=== PATIENT | male | born 1995 | race Two or more races ===

== ENCOUNTER 2019-09-03 06:15 | Emergency (ER) | payer SELFPAY ==
[~2019-09-03] VITALS: Ht 170.2 cm; Wt 68.0 kg
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
--- NOTE | 2019-09-03 06:30 | NUR ---
BROUGHT TO CT
--- NOTE | 2019-09-03 06:40 | NUR ---
PT RETURNED FROM CT
--- NOTE | 2019-09-03 06:41 | NUR ---
PER MD, SALINE LOCK CANCELLED. TAILINGS MAN AT BEDSIDE FOR BLOOD DRAW
--- NOTE | 2019-09-03 06:46 | NUR ---
ELECT[employer]ICAL SYSTEMS ENGINEER AT BEDSIDE FOR BLOOD DRAW.
[2019-09-03 06:59] LABS: BASOPHILS % (AUTO) 0.5 % (0.0-2.0); EOSINOPHILS % (AUTO) 0.3 % (0.0-6.0); HEMATOCRIT 42 % (39-51); HEMOGLOBIN 14.1 g/dL (13.5-17.5); LYMPHOCYTES % (AUTO) 18.7 % (20.0-44.0); MEAN CORPUSCULAR HGB CONC 33 g/dl (31.0-36.0); MEAN CORPUSCULAR VOLUME 93 fL (80-96); MONOCYTES # (AUTO) 0.4 /CMM (0.1-1.30); MONOCYTES % (AUTO) 7.6 % (2.0-12.0); NEUTROPHILS # (AUTO) 3.8 /CMM (1.8-8.9); NEUTROPHILS % (AUTO) 72.9 % (43.0-81.0); PLATELET COUNT (AUTO) 206 /CMM (150-450); RED BLOOD CELL COUNT(AUTO) 4.54 MIL/uL (4.5-6.0); WHITE BLOOD COUNT (AUTO) 5.2 K/uL (4.3-11.0)
[2019-09-03 07:03] LABS: POTASSIUM 3.5 mmol/L (3.5-5.1)
[2019-09-03 07:31] LABS: ALBUMIN 4.3 g/dL (3.4-5.0); BILIRUBIN,DIRECT 0.1 mg/dL (0.0-0.2); BILIRUBIN,TOTAL 0.2 mg/dL (0.2-1.0); CREATININE 0.7 mg/dL (0.6-1.3); SALICYLATE 4.1 mg/dL (2.8-20.0); TOTAL PROTEIN, SERUM 8.1 g/dL (6.4-8.2)
--- NOTE | 2019-09-03 07:42 | NUR ---
ASSESSED PT ON BED AWAKE AND ALERT, NOT IN RESPIRATORY DISTRESS, HOOKED TO MONITOR, V/S STABLE, KEPT RESTED AND COMFORTABLE, WILL CONTINUE TO MONITOR.
[2019-09-03 08:17] LABS: APPEARANCE,URINE Clear (CLEAR); BILIRUBIN,URINE Negative (NEGATIVE); BLOOD, URINE Negative Ery/uL (NEGATIVE); COLOR,URINE Yellow (YELLOW); KETONES,URINE Negative (NEGATIVE); LEUKOCYTE ESTERASE ,URINE Negative (NEGATIVE); NITRITE, URINE Negative (NEGATIVE); PH,URINE 5.5 (5.0-8.0); PROTEIN,URINE Negative (NEGATIVE); UGLUCOSE Negative (NEGATIVE); UROBILINOGEN,URINE 0.2 EU/dL (0.2)
--- NOTE | 2019-09-03 12:02 | NUR ---
PT IS AWAKE, AMBULATORY W/ STEADY GAIT. AAOX3. DR PHAM AT BEDSIDE FOR RE EVAL.
--- NOTE | 2019-09-03 12:40 | NUR ---
Patient given written and verbal discharge instructions. Patient verbalizes understanding of instructions. Patient is ambulatory with steady gait. Refuses offer of penitentiary placement. Patient given list of available shelters in surrounding area.
[2019-09-03 12:41] VITALS: BP 133/84
== END 2019-09-03 12:42 | disposition home or self-care (01) ==
LOC: ER 06:15
DX: F10.129 Alcohol abuse with intoxication, unspecified (principal); R41.82 Altered mental status, unspecified; Y90.8 Blood alcohol level of 240 mg/100 ml or more
CPT/HCPCS: 36415; 70450; 80048; 80076; 80305; 80307; 80329; 81001; 85025; 99285; G0480; 81000-TC

== ENCOUNTER 2020-09-15 19:40 | Emergency (ER) | payer SELFPAY ==
[~2020-09-15] VITALS: Ht 162.6 cm; Wt 68.0 kg
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
[2020-09-15] MEDS ORDERED: LIDOCAINE 0.5%-EPI 1:200,000 50 ML VIAL ONE (20:11)
[2020-09-15] MEDS ORDERED: TDAP [DIPH/PERTUSSIS/TET] 0.5 ML VIAL IM ONE (20:22)
[2020-09-15] MEDS: TDAP [DIPH/PERTUSSIS/TET] 0.5 ML VIAL IM ONE (20:22)
[2020-09-15 20:39] LABS: BASOPHILS % (AUTO) 0.8 % (0.0-2.0); EOSINOPHILS % (AUTO) 0.9 % (0.0-6.0); HEMATOCRIT 44 % (39-51); HEMOGLOBIN 14.6 g/dL (13.5-17.5); LYMPHOCYTES # (AUTO) 1.3 /CMM (0.8-4.8); LYMPHOCYTES % (AUTO) 34.4 % (20.0-44.0); MEAN CORPUSCULAR HGB CONC 34 g/dl (31.0-36.0); MEAN CORPUSCULAR VOLUME 93 fL (80-96); MONOCYTES # (AUTO) 0.4 /CMM (0.1-1.30); MONOCYTES % (AUTO) 10.3 % (2.0-12.0); NEUTROPHILS % (AUTO) 53.6 % (43.0-81.0); PLATELET COUNT (AUTO) 195 /CMM (150-450); RED BLOOD CELL COUNT(AUTO) 4.66 MIL/uL (4.5-6.0); WHITE BLOOD COUNT (AUTO) 3.8 K/uL (4.3-11.0)
[2020-09-15 20:48] LABS: CALCIUM, SERUM 8.2 mg/dL (8.5-10.1); CARBON DIOXIDE 26 mmol/L (21-32); CHLORIDE 104 mmol/L (98-107); CREATININE 0.8 mg/dL (0.6-1.3); GLUCOSE 136 mg/dL (74-106); POTASSIUM 4.1 mmol/L (3.5-5.1); SODIUM SERUM 142 mmol/L (136-145); UREA NITROGEN, BLOOD 5 mg/dL (7-18)
[2020-09-15 21:03] LABS: ACETAMINOPHEN < 2 ug/ml (10-30); ALANINE AMINOTRANSFERASE 130 U/L (12-78); ALBUMIN 4.1 g/dL (3.4-5.0); ALCOHOL, BLOOD 482 mg/dL (0-0); ALKALINE PHOSPHATASE 131 U/L (46-116); ASPARTATE AMINOTRANSFERASE 121 U/L (15-37); BILIRUBIN,DIRECT 0.1 mg/dL (0.0-0.2); BILIRUBIN,TOTAL 0.2 mg/dL (0.2-1.0); TOTAL PROTEIN, SERUM 8.2 g/dL (6.4-8.2)
--- NOTE | 2020-09-15 23:55 | NUR ---
PT AAOX4, DENIES SI/HI AT THIS TIME. MD CORONADO
--- NOTE | 2020-09-16 03:48 | NUR ---
PT REMAINS ASLEEP, VSS.
--- NOTE | 2020-09-16 05:20 | NUR ---
PT AWAKE. AMBULATORY WITH STEADY GAIT. MEDICALLY CLEARED FOR DISCHARGE AT THIS TIME.
--- NOTE | 2020-09-16 05:30 | NUR ---
Patient discharged to home in stable condition. Written and verbal after care instructions given. Patient verbalizes understanding of instruction. Pt ambulated out of ED. VSS.
[2020-09-16 06:02] VITALS: BP 126/73
== END 2020-09-16 05:40 | disposition home or self-care (01) ==
LOC: ER 19:40 → EDUNIT# 19:40 → EDBD 19:40 → ER 09-16 05:40
DX: S61.212A Laceration without foreign body of right middle finger without damage to nail, initial encounter (principal); F10.129 Alcohol abuse with intoxication, unspecified; W25.XXXA Contact with sharp glass, initial encounter; Y93.89 Activity, other specified; Y92.481 Parking lot as the place of occurrence of the external cause; Y99.8 Other external cause status; Y90.8 Blood alcohol level of 240 mg/100 ml or more
CPT/HCPCS: 12002; 73130; 80048; 80076; 80299; 80307; 80320; 85025; 90471; 90715; 99284; J3490; G0480

== ENCOUNTER 2021-10-28 21:44 | Emergency (ER) | payer MEDICAID ==
[~2021-10-28] VITALS: Ht 162.6 cm; Wt 63.5 kg
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
[2021-10-28] MEDS ORDERED: LIDOCAINE 1% INJ 50 ML MDV IJ ONE (22:30)
[2021-10-28] MEDS ORDERED: ACETAMINOPHEN ES 500 MG TABLET PO ONE (22:30)
[2021-10-29 00:15] LABS: BASOPHILS # (AUTO) 0.1 K/uL (0.0-0.2); EOSINOPHILS % (AUTO) 1.3 % (0.0-6.0); HEMATOCRIT 30 % (39-51); HEMOGLOBIN 9.5 g/dL (13.5-17.5); LYMPHOCYTES # (AUTO) 0.2 K/uL (0.8-4.8); LYMPHOCYTES % (AUTO) 7.4 % (20.0-44.0); MEAN CORPUSCULAR HGB CONC 32 g/dl (31.0-36.0); MEAN CORPUSCULAR VOLUME 76 fL (80-96); MONOCYTES # (AUTO) 0.4 K/uL (0.1-1.30); MONOCYTES % (AUTO) 13.5 % (2.0-12.0); NEUTROPHILS % (AUTO) 73.8 % (43.0-81.0); PLATELET COUNT (AUTO) 164 K/uL (150-450); RED BLOOD CELL COUNT(AUTO) 3.97 MIL/uL (4.5-6.0); WHITE BLOOD COUNT (AUTO) 2.8 K/uL (4.3-11.0)
[2021-10-29 00:30] LABS: CALCIUM, SERUM 8.1 mg/dL (8.5-10.1); CREATININE 0.6 mg/dL (0.6-1.3); POTASSIUM 3.7 mmol/L (3.5-5.1)
--- NOTE | 2021-10-29 01:25 | NUR ---
PT AMBULATED TO BATHROOM, STEADY GAIT NOTED
--- NOTE | 2021-10-29 01:26 | NUR ---
IV LINE ESTABLISHED, [id number]
[2021-10-29 02:17] LABS: BASOPHILS # (AUTO) 0.1 K/uL (0.0-0.2); EOSINOPHILS % (AUTO) 0.8 % (0.0-6.0); HEMATOCRIT 31 % (39-51); HEMOGLOBIN 9.8 g/dL (13.5-17.5); LYMPHOCYTES # (AUTO) 0.8 K/uL (0.8-4.8); LYMPHOCYTES % (AUTO) 22.3 % (20.0-44.0); MEAN CORPUSCULAR HGB CONC 32 g/dl (31.0-36.0); MEAN CORPUSCULAR VOLUME 76 fL (80-96); MONOCYTES # (AUTO) 0.3 K/uL (0.1-1.30); MONOCYTES % (AUTO) 8.9 % (2.0-12.0); NEUTROPHILS # (AUTO) 2.4 K/uL (1.8-8.9); PLATELET COUNT (AUTO) 175 K/uL (150-450); RED BLOOD CELL COUNT(AUTO) 4.03 MIL/uL (4.5-6.0); WHITE BLOOD COUNT (AUTO) 3.6 K/uL (4.3-11.0)
--- NOTE | 2021-10-29 02:18 | NUR ---
URINE SAMPLE COLLECTED
[2021-10-29 04:45] LABS: BASOPHILS % (MANUAL) 0 % (0.0-2.0); EOSINOPHILS % (MANUAL) 3 % (0-4); LYMPHOCYTES % (MANUAL) 13 % (16-48); METAMYELOCYTES % 2 % (0-0); MONOCYTES % (MANUAL) 10 % (0-11.0); MYELOCYTES % 1 % (0-0)
[2021-10-29 04:47] LABS: NEUTROPHILS % (MANUAL) 71 (42-76)
[2021-10-29] MEDS ORDERED: AMOX-430 PO (05:48)
[2021-10-29] MEDS ORDERED: ACET-2605 PO (05:48)
[2021-10-29 10:56] VITALS: BP 124/73
--- NOTE | 2021-10-29 11:18 | NUR ---
Patient discharged to home in stable condition. IV line removed, no bleeding noted. Written and verbal after care instructions given. Patient verbalizes understanding of instruction.
== END 2021-10-29 11:18 | disposition home or self-care (01) ==
LOC: ER 21:53
DX: S02.2XXA Fracture of nasal bones, initial encounter for closed fracture (principal); S01.511A Laceration without foreign body of lip, initial encounter; Y04.2XXA Assault by strike against or bumped into by another person, initial encounter; Y93.89 Activity, other specified; Y92.89 Other specified places as the place of occurrence of the external cause; Y99.8 Other external cause status
CPT/HCPCS: 12011; 36415 ×2; 70450; 70486; 71045; 71250; 72125; 72170; 74176; 76705; 80048; 80307; 80320; 85007; 85025 ×2; 99285; A6403; G0480